=== PATIENT | female | born 1945 | race Two or more races ===

== ENCOUNTER 2020-07-09 07:57 | Outpatient (CLI) | payer OTHER | END 2020-07-09 08:05 | disposition home or self-care (01) | LOC: SONOGRAMA 07:57 → RAD 07:57 → SONOGRAMA 08:05 | PROVIDERS: ATTEND Pathology Anatomic Pathology & Clinical Pathology | DX: D34 Benign neoplasm of thyroid gland (principal); D44.9 Neoplasm of uncertain behavior of unspecified endocrine gland; E04.8 Other specified nontoxic goiter ==

== ENCOUNTER 2020-12-11 07:13 | Outpatient (CLI) | payer OTHER ==
[2021-03-18] MEDS ORDERED: AMOX-CLAV 875-1 EACH PO (16:45)
== END 2020-12-11 07:25 | disposition home or self-care (01) ==
LOC: MRI 07:13
PROVIDERS: ATTEND Internal Medicine Endocrinology, Diabetes & Metabolism
DX: M51.37 Other intervertebral disc degeneration, lumbosacral region (principal); M41.87 Other forms of scoliosis, lumbosacral region
CPT/HCPCS: 72148

== ENCOUNTER 2020-12-19 09:14 | Outpatient (CLI) | payer OTHER | END 2020-12-19 09:25 | disposition home or self-care (01) | LOC: MRI 09:14 | PROVIDERS: ATTEND Neuromusculoskeletal Medicine & OMM | DX: M50.20 Other cervical disc displacement, unspecified cervical region (principal); M50.30 Other cervical disc degeneration, unspecified cervical region | CPT/HCPCS: 72141 ==

== ENCOUNTER 2025-03-03 16:10 | Outpatient (CLI) | payer OTHER ==
[~2025-03-03 16:10] MED LIST: AMOX-CLAV 875-1 EACH PO
[2025-03-03 17:29] LABS: CREATININE SERUM 0.62 mg/dL (0.55-1.02)
== END 2025-03-03 16:15 | disposition home or self-care (01) ==
LOC: LAB 16:10
DX: R10.31 Right lower quadrant pain (principal); R10.813 Right lower quadrant abdominal tenderness; M79.661 Pain in right lower leg

== ENCOUNTER 2025-03-07 09:21 | Outpatient (CLI) | payer OTHER | END 2025-03-07 09:24 | disposition home or self-care (01) | LOC: TOM 09:21 | PROVIDERS: ATTEND Internal Medicine Endocrinology, Diabetes & Metabolism | DX: R10.31 Right lower quadrant pain (principal); R10.813 Right lower quadrant abdominal tenderness; M79.661 Pain in right lower leg | CPT/HCPCS: 74178; Q9965 ==